=== PATIENT | female | born 1960 | race Two or more races ===

== ENCOUNTER → 2017-08-21 | Emergency (ER) | payer OTHER ==
[~2017-08-21] VITALS: Ht 152.4 cm; Wt 111.1 kg
[~2017-08-21] MED LIST: CIPRO500 MG PO; CLONAZEPAM1 MG PO; CLONAZEPAM2 MG PO; FOLIC ACID1 MG PO; HYOSCYAMINE0.125 M1 SL; HYZAAR 100-251 UDTAB; HYZAAR 100-251 UDTAB PO; HYZAAR 100/25 T1 TAB PO; Neurin-Sl Tablet Sl SL; OXYC1TAB9 PO; PAXIL CR25 MG PO; PROSOM PO; RESTORIL30 MG; TRAM1TAB98 PO; VITAMIN B COMPL1 CAP PO; ZOLPIDEM TARTRA10 MG PO
== END | disposition home or self-care (01) ==
LOC: ER 14:09
DX: N20.1 Calculus of ureter (principal)

== ENCOUNTER 2017-08-23 23:14 | Inpatient (IN) | payer OTHER ==
[~2017-08-23] VITALS: Ht 152.4 cm; Wt 111.0 kg
== END 2017-09-01 13:13 | disposition home or self-care (01) | DRG 669 ==
LOC: ER 23:14 → SURH 23:58
PROVIDERS: Urology
PROC: 0T768DZ Dilation of Right Ureter with Intraluminal Device, Via Natural or Artificial Opening Endoscopic (ICD-10-PCS; 2017-08-31)
PROC: 0TC68ZZ Extirpation of Matter from Right Ureter, Via Natural or Artificial Opening Endoscopic (ICD-10-PCS; principal; 2017-08-31 11:15)
DX: N17.8 Other acute kidney failure (principal); N20.2 Calculus of kidney with calculus of ureter; N39.0 Urinary tract infection, site not specified; F33.8 Other recurrent depressive disorders; E86.0 Dehydration; E66.01 Morbid (severe) obesity due to excess calories; I12.9 Hypertensive chronic kidney disease with stage 1 through stage 4 chronic kidney disease, or unspecified chronic kidney disease; N18.1 Chronic kidney disease, stage 1; D63.1 Anemia in chronic kidney disease; N13.5 Crossing vessel and stricture of ureter without hydronephrosis

== ENCOUNTER 2017-10-28 20:13 | Emergency (ER) | payer OTHER ==
[~2017-10-28] VITALS: Ht 152.4 cm; Wt 111.1 kg
== END 2017-10-29 08:54 | disposition home or self-care (01) ==
LOC: ER 20:13
DX: N20.0 Calculus of kidney (principal); N39.0 Urinary tract infection, site not specified; D72.828 Other elevated white blood cell count

== ENCOUNTER 2018-01-29 07:36 | Outpatient (CLI) | payer OTHER | END 2018-01-29 10:19 | disposition home or self-care (01) | LOC: TOM 07:36 | DX: N20.0 Calculus of kidney (principal) ==

== ENCOUNTER 2018-11-21 15:58 | Emergency (ER) | payer OTHER ==
[~2018-11-21] VITALS: Ht 152.4 cm; Wt 110.7 kg
[2018-11-22] MEDS ORDERED: PERCOCET 5-3251 EACH PO (01:27)
== END 2018-11-22 01:35 | disposition home or self-care (01) ==
LOC: ER 15:58
DX: N20.0 Calculus of kidney (principal); R10.31 Right lower quadrant pain

== ENCOUNTER 2019-01-21 07:57 | Day surgery (SDC) | payer OTHER ==
[~2019-01-21 07:57] MED LIST changes: +CLONAZEPAM1 M1; +PERCOCET 5-3251 EACH PO; +RESTORIL15 MG
== END 2019-01-21 14:50 | disposition home or self-care (01) ==
LOC: CIR.AMB 07:57
DX: N20.0 Calculus of kidney (principal); N13.1 Hydronephrosis with ureteral stricture, not elsewhere classified

== ENCOUNTER 2019-02-06 08:00 | Day surgery (SDC) | payer OTHER ==
[~2019-02-06] VITALS: Ht 152.4 cm; Wt 110.7 kg
== END 2019-02-07 08:06 | disposition home or self-care (01) ==
LOC: CIR.AMB 08:00 → ER 14:11 → SURH 16:07 → ER 16:07 → O/R 16:07 → CIR.AMB 02-07 08:06 → EDSTATUS 02-07 15:30 → SURH 02-07 17:33
DX: N20.2 Calculus of kidney with calculus of ureter (principal); N39.0 Urinary tract infection, site not specified; N13.5 Crossing vessel and stricture of ureter without hydronephrosis; Z88.0 Allergy status to penicillin; Z88.6 Allergy status to analgesic agent; Z88.5 Allergy status to narcotic agent

== ENCOUNTER 2019-05-24 06:00 | Inpatient (IN) | payer OTHER ==
[~2019-05-24] VITALS: Ht 152.4 cm; Wt 115.2 kg
[2019-05-27] MEDS ORDERED: RESTORIL15 MG PO (13:48)
[2019-05-27] MEDS ORDERED: PAXIL CR25 MG PO (13:48)
[2019-05-27] MEDS ORDERED: FAMOTIDINE20 MG PO (13:48)
[2019-05-27] MEDS ORDERED: AMLODIPINE BESYL5 MG PO (13:48)
[2019-05-27] MEDS ORDERED: TRAM1TAB98 PO (15:53)
== END 2019-05-27 16:23 | disposition home health service (06) | DRG 690 ==
LOC: MEDJ 06:00 → SEC-K 06:00 → MEDJ 14:22
PROVIDERS: ADMIT Internal Medicine Geriatric Medicine
PROC: 02HV33Z Insertion of Infusion Device into Superior Vena Cava, Percutaneous Approach (ICD-10-PCS; principal; 2019-05-24)
PROC: 8E0ZXY6 Isolation (ICD-10-PCS; 2019-05-25)
DX: N13.6 Pyonephrosis (principal); Z16.12 Extended spectrum beta lactamase (ESBL) resistance; B96.29 Other Escherichia coli [E. coli] as the cause of diseases classified elsewhere; I87.8 Other specified disorders of veins; N17.8 Other acute kidney failure; I10 Essential (primary) hypertension

== ENCOUNTER 2019-10-31 19:31 | Inpatient (IN) | payer OTHER ==
[~2019-10-31] VITALS: Ht 154.9 cm; Wt 104.8 kg
[~2019-10-31 19:31] MED LIST changes: +AMLODIPINE BESYL5 MG PO; +FAMOTIDINE20 MG PO; +RESTORIL15 MG PO
[2019-11-09] MEDS ORDERED: FAMOTIDINE20 MG PO (11:11)
[2019-11-09] MEDS ORDERED: CLONAZEPAM1 MG PO (11:11)
[2019-11-09] MEDS ORDERED: ULTRAM50 MG PO (11:11)
[2019-11-09] MEDS ORDERED: PAXIL CR25 MG PO (11:11)
[2019-11-09] MEDS ORDERED: AMLODIPINE BESYL5 MG PO (11:11)
[2019-11-09] MEDS ORDERED: LOSARTAN-HCTZ1 EAC2 PO (11:11)
== END 2019-11-09 14:46 | disposition home or self-care (01) | DRG 690 ==
LOC: ER 19:31 → SURH 11-01 07:14
PROVIDERS: ADMIT Internal Medicine Geriatric Medicine; ATTEND Internal Medicine Geriatric Medicine
PROC: 02HV33Z Insertion of Infusion Device into Superior Vena Cava, Percutaneous Approach (ICD-10-PCS; 2019-11-01)
PROC: BW20ZZZ Computerized Tomography (CT Scan) of Abdomen (ICD-10-PCS; 2019-11-01)
PROC: 8E0ZXY6 Isolation (ICD-10-PCS; principal; 2019-11-02)
DX: N39.0 Urinary tract infection, site not specified (principal); N17.9 Acute kidney failure, unspecified; F33.9 Major depressive disorder, recurrent, unspecified; I12.9 Hypertensive chronic kidney disease with stage 1 through stage 4 chronic kidney disease, or unspecified chronic kidney disease; N18.9 Chronic kidney disease, unspecified; E66.01 Morbid (severe) obesity due to excess calories; D63.1 Anemia in chronic kidney disease; N20.0 Calculus of kidney; Z96.653 Presence of artificial knee joint, bilateral; F41.9 Anxiety disorder, unspecified

== ENCOUNTER 2019-12-08 09:03 | Outpatient (CLI) | payer OTHER ==
[~2019-12-08 09:03] MED LIST changes: +LOSARTAN-HCTZ1 EAC2 PO; +ULTRAM50 MG PO
== END 2019-12-08 09:16 | disposition home or self-care (01) ==
LOC: SONOGRAMA 09:03 → MAMO-SONO 09:15 → SONOGRAMA 09:16
PROVIDERS: ATTEND Urology
DX: N20.0 Calculus of kidney (principal); N13.1 Hydronephrosis with ureteral stricture, not elsewhere classified

== ENCOUNTER 2019-12-08 10:14 | Outpatient (CLI) | payer OTHER | END 2019-12-08 10:17 | disposition home or self-care (01) | LOC: LAB 10:14 | PROVIDERS: ATTEND Urology | DX: N20.0 Calculus of kidney (principal); N13.1 Hydronephrosis with ureteral stricture, not elsewhere classified ==

== ENCOUNTER 2020-10-19 05:47 | Day surgery (SDC) | payer OTHER ==
[~2020-10-19 05:47] MED LIST changes: +HYZAAR 100-251 EACH PO
== END 2020-10-19 18:20 | disposition home or self-care (01) ==
LOC: CIR.AMB 05:47
PROVIDERS: ATTEND Urology
DX: N13.2 Hydronephrosis with renal and ureteral calculous obstruction (principal); N13.1 Hydronephrosis with ureteral stricture, not elsewhere classified; Z20.822 Contact with and (suspected) exposure to COVID-19

== ENCOUNTER 2022-09-03 08:26 | Inpatient (IN) | payer OTHER ==
[~2022-09-03] VITALS: Ht 152.4 cm; Wt 104.8 kg
[2022-09-10] MEDS ORDERED: AMLODIPINE BESYL5 MG PO (10:42)
[2022-09-10] MEDS ORDERED: HYZAAR 100-251 EACH PO (10:43)
[2022-09-10] MEDS ORDERED: FAMOTIDINE20 MG PO (10:44)
[2022-09-10] MEDS ORDERED: INTESTINEX680 M1 PO (10:45)
[2022-09-10] MEDS ORDERED: CLONAZEPAM1 MG PO ×2 (10:45→10:46)
[2022-09-10] MEDS ORDERED: RESTORIL15 MG PO (10:46)
[2022-09-10] MEDS ORDERED: PAXIL CR25 MG PO (10:46)
[2022-09-10] MEDS ORDERED: FLUCONAZOLE150 MG PO (10:47)
== END 2022-09-10 12:58 | disposition home or self-care (01) | DRG 690 ==
LOC: ER 08:26 → MEDI 12:43 → SEC-K 12:43 → MEDI 14:04 → MEDJ 16:11
PROVIDERS: ADMIT Internal Medicine Geriatric Medicine; ATTEND Internal Medicine Geriatric Medicine
PROC: 02HV33Z Insertion of Infusion Device into Superior Vena Cava, Percutaneous Approach (ICD-10-PCS; 2022-09-03)
PROC: 8E0ZXY6 Isolation (ICD-10-PCS; 2022-09-03)
PROC: BT43ZZZ Ultrasonography of Bilateral Kidneys (ICD-10-PCS; principal; 2022-09-04)
DX: N39.0 Urinary tract infection, site not specified (principal); Z68.42 Body mass index [BMI] 45.0-49.9, adult; Z16.12 Extended spectrum beta lactamase (ESBL) resistance; B96.29 Other Escherichia coli [E. coli] as the cause of diseases classified elsewhere; N20.0 Calculus of kidney; I12.9 Hypertensive chronic kidney disease with stage 1 through stage 4 chronic kidney disease, or unspecified chronic kidney disease; N18.9 Chronic kidney disease, unspecified; D63.1 Anemia in chronic kidney disease; F41.8 Other specified anxiety disorders; D72.829 Elevated white blood cell count, unspecified; E66.01 Morbid (severe) obesity due to excess calories; Z20.822 Contact with and (suspected) exposure to COVID-19

== ENCOUNTER 2023-02-03 16:58 | Outpatient (CLI) | payer OTHER ==
[~2023-02-03 16:58] MED LIST changes: +FLUCONAZOLE150 MG PO; +INTESTINEX680 M1 PO
== END 2023-02-03 16:59 | disposition home or self-care (01) ==
LOC: LAB 16:58
PROVIDERS: ATTEND Internal Medicine Geriatric Medicine
DX: N39.0 Urinary tract infection, site not specified (principal)

== ENCOUNTER 2023-02-24 09:44 | Outpatient (CLI) | payer OTHER | END 2023-02-24 09:59 | disposition home or self-care (01) | LOC: SONOGRAMA 09:44 | PROVIDERS: ATTEND Internal Medicine Hematology & Oncology | DX: E04.2 Nontoxic multinodular goiter (principal) ==

== ENCOUNTER 2023-02-24 11:10 | Outpatient (CLI) | payer OTHER | END 2023-02-24 11:12 | disposition home or self-care (01) | LOC: LAB 11:10 | PROVIDERS: ATTEND Internal Medicine Hematology & Oncology | DX: D50.8 Other iron deficiency anemias (principal); R79.9 Abnormal finding of blood chemistry, unspecified; I10 Essential (primary) hypertension; R74.02 Elevation of levels of lactic acid dehydrogenase [LDH]; K76.89 Other specified diseases of liver; D63.8 Anemia in other chronic diseases classified elsewhere; D55.0 Anemia due to glucose-6-phosphate dehydrogenase [G6PD] deficiency; D51.1 Vitamin B12 deficiency anemia due to selective vitamin B12 malabsorption with proteinuria; D51.0 Vitamin B12 deficiency anemia due to intrinsic factor deficiency; D63.1 Anemia in chronic kidney disease; E03.8 Other specified hypothyroidism; E21.0 Primary hyperparathyroidism; D72.828 Other elevated white blood cell count; F33.9 Major depressive disorder, recurrent, unspecified; G47.33 Obstructive sleep apnea (adult) (pediatric); N20.0 Calculus of kidney ==

== ENCOUNTER 2023-03-25 09:39 | Outpatient (CLI) | payer OTHER ==
[2023-03-25 10:57] LABS: CALCIUM 8.8 mg/dL (8.5-10.1); CREATININE SERUM 1.92 mg/dL (0.55-1.02); GFR 26.29; POTASSIUM 4.15 mEq/L (3.5-5.1)
== END 2023-03-25 09:40 | disposition home or self-care (01) ==
LOC: LAB 09:39
PROVIDERS: ATTEND Internal Medicine Geriatric Medicine
DX: N20.0 Calculus of kidney (principal); Z88.0 Allergy status to penicillin; Z88.5 Allergy status to narcotic agent; Z88.6 Allergy status to analgesic agent

== ENCOUNTER → 2023-06-26 10:49 | Outpatient (CLI) | payer OTHER ==
[2023-06-26 12:20] LABS: HEMATOCRIT 34.5 % (36.0-45.00); HEMOGLOBIN 11.2 g/dL (12.0-15.00); MEAN CELL VOLUME 88.4 fL (80.00-100.00); MEAN CORPUSCULAR HEMOGLOBIN 28.7 pg (27.00-32.0); MEAN CORPUSCULAR HGB CONC 32.5 g/dl (32.0-36.0); PLATELET COUNT 269 K/uL (150-450); RED BLOOD COUNT 3.91 M/uL (4.00-6.00); RED CELL DISTRIBUTION WIDTH 14.9 % (11.5-14.5)
[2023-06-26 13:04] LABS: ALBUMIN 3.3 gm/dL (3.4-5.0); BILIRUBIN TOTAL 0.21 mg/dL (0.3-1.2); CALCIUM 8.7 mg/dL (8.5-10.1); CREATININE SERUM 2.12 mg/dL (0.55-1.02); GFR 23.45; GLOBULINA 3.4 G/DL (2.4-3.5); POTASSIUM 3.49 mEq/L (3.5-5.1); T4 FREE 1.06 NG/ML (0.76-1.46); TOTAL PROTEIN 6.7 gm/dL (6.4-8.2); TSH 1.47 uIU/mL (0.358-3.74)
[2023-06-26 13:06] LABS: FOLIC ACID > 20.00 ng/ml (4.78-20)
[2023-06-26 14:47] LABS: MANUAL PLATELET COUNT 414
[2023-06-26 14:53] LABS: PLATELET ESTIMATE NORMAL (NORMAL)
== END | disposition home or self-care (01) ==
LOC: LAB 10:49
PROVIDERS: ATTEND Internal Medicine Hematology & Oncology
DX: D50.8 Other iron deficiency anemias (principal); R79.9 Abnormal finding of blood chemistry, unspecified; I10 Essential (primary) hypertension; R74.02 Elevation of levels of lactic acid dehydrogenase [LDH]; K76.89 Other specified diseases of liver; D51.8 Other vitamin B12 deficiency anemias; D63.1 Anemia in chronic kidney disease; E03.8 Other specified hypothyroidism; E83.52 Hypercalcemia; E06.3 Autoimmune thyroiditis; D72.828 Other elevated white blood cell count; G47.33 Obstructive sleep apnea (adult) (pediatric); N20.0 Calculus of kidney; D51.3 Other dietary vitamin B12 deficiency anemia; D52.8 Other folate deficiency anemias; E04.2 Nontoxic multinodular goiter; Z88.0 Allergy status to penicillin; Z88.5 Allergy status to narcotic agent; Z88.6 Allergy status to analgesic agent

== ENCOUNTER → 2023-09-21 08:22 | Outpatient (CLI) | payer OTHER ==
[2023-09-21 09:46] LABS: PH,URINE 5.5 (5.0-8.0); URINE APPEARANCE Clear; URINE BILIRRUBIN Negative (NEGATIVE); URINE BLOOD Negative; URINE COLOR Yellow; URINE GLUCOSE Negative (NEGATIVE); URINE LEUKOCYTE Negative; URINE NITRATE Negative; URINE PROTEIN Negative (NEGATIVE); URINE UROBILINOGEN 0.2 E.U./dl
[2023-09-21 09:47] LABS: URINE EPITHELIAL CELLS 12.9 uL (0.0-38.8); URINE RBC 2.7 uL (0.0-20.8); URINE WBC 2.1 uL (0.0-23.2)
[2023-09-21 09:54] LABS: HEMATOCRIT 32.3 % (36.0-45.00); HEMOGLOBIN 10.6 g/dL (12.0-15.00); MEAN CELL VOLUME 87.4 fL (80.00-100.00); MEAN CORPUSCULAR HEMOGLOBIN 28.8 pg (27.00-32.0); MEAN CORPUSCULAR HGB CONC 32.9 g/dl (32.0-36.0); PLATELET COUNT 294 K/uL (150-450); RED BLOOD COUNT 3.69 M/uL (4.00-6.00); RED CELL DISTRIBUTION WIDTH 15.5 % (11.5-14.5)
[2023-09-21 10:20] LABS: ALBUMIN 3.5 gm/dL (3.4-5.0); BILIRUBIN TOTAL 0.4 mg/dL (0.3-1.2); CALCIUM 9.2 mg/dL (8.5-10.1); CHOL HDL RATIO 3.1 (0-5.0); CREATININE SERUM 2.42 mg/dL (0.55-1.02); GFR 20.07; GLOBULINA 3.8 G/DL (2.4-3.5); POTASSIUM 3.2 mEq/L (3.5-5.1); TOTAL PROTEIN 7.3 gm/dL (6.4-8.2); TSH 2.03 uIU/mL (0.358-3.74)
[2023-09-21 11:18] LABS: MANUAL PLATELET COUNT 296; PLATELET ESTIMATE NORMAL (NORMAL)
[2023-09-21 13:23] LABS: FOLIC ACID > 20.00 ng/ml (4.78-20); VITAMIN D3 25 HYDROXY 62.06 ng/ml (30-120)
== END | disposition home or self-care (01) ==
LOC: LAB 08:22
PROVIDERS: ATTEND Internal Medicine Hematology & Oncology
DX: D50.8 Other iron deficiency anemias (principal); R79.9 Abnormal finding of blood chemistry, unspecified; I10 Essential (primary) hypertension; R74.02 Elevation of levels of lactic acid dehydrogenase [LDH]; K76.89 Other specified diseases of liver; D51.8 Other vitamin B12 deficiency anemias; D72.828 Other elevated white blood cell count; G47.33 Obstructive sleep apnea (adult) (pediatric); N20.0 Calculus of kidney; D51.3 Other dietary vitamin B12 deficiency anemia; D52.8 Other folate deficiency anemias; E04.2 Nontoxic multinodular goiter; E21.0 Primary hyperparathyroidism; D50.9 Iron deficiency anemia, unspecified; E03.9 Hypothyroidism, unspecified; E78.2 Mixed hyperlipidemia; I11.9 Hypertensive heart disease without heart failure; E56.8 Deficiency of other vitamins; N39.0 Urinary tract infection, site not specified; R19.5 Other fecal abnormalities; E55.9 Vitamin D deficiency, unspecified; N19 Unspecified kidney failure; E11.9 Type 2 diabetes mellitus without complications

== ENCOUNTER 2023-12-28 08:53 | Outpatient (CLI) | payer OTHER ==
[~2023-12-28 08:53] MED LIST changes: +ABANEU-SL TABL1 EACH SL; +FUSION PLUS CA1 EACH PO; +MELATONIN10 M2 PO; +TRAMADOL HCL50 MG PO
[2023-12-28 09:59] LABS: HEMATOCRIT 35.4 % (36.0-45.00); HEMOGLOBIN 11.8 g/dL (12.0-15.00); MEAN CELL VOLUME 89.8 fL (80.00-100.00); MEAN CORPUSCULAR HEMOGLOBIN 29.9 pg (27.00-32.0); MEAN CORPUSCULAR HGB CONC 33.3 g/dl (32.0-36.0); PLATELET COUNT 250 K/uL (150-450); RED BLOOD COUNT 3.94 M/uL (4.00-6.00)
[2023-12-28 11:00] LABS: ALBUMIN 3.6 gm/dL (3.4-5.0); BILIRUBIN TOTAL 0.34 mg/dL (0.3-1.2); CALCIUM 9.2 mg/dL (8.5-10.1); CREATININE SERUM 2.48 mg/dL (0.55-1.02); GFR 19.51; POTASSIUM 3.1 mEq/L (3.5-5.1); TOTAL PROTEIN 7.6 gm/dL (6.4-8.2)
[2023-12-28 14:42] LABS: MANUAL PLATELET COUNT 424
[2023-12-28 14:44] LABS: PLATELET ESTIMATE NORMAL (NORMAL)
== END 2023-12-28 08:56 | disposition home or self-care (01) ==
LOC: LAB 08:53
PROVIDERS: ATTEND Internal Medicine Hematology & Oncology
DX: D72.828 Other elevated white blood cell count (principal); I10 Essential (primary) hypertension; F33.9 Major depressive disorder, recurrent, unspecified; G47.33 Obstructive sleep apnea (adult) (pediatric); N20.0 Calculus of kidney; D50.8 Other iron deficiency anemias; D51.3 Other dietary vitamin B12 deficiency anemia; D52.8 Other folate deficiency anemias; E04.2 Nontoxic multinodular goiter; E21.0 Primary hyperparathyroidism

== ENCOUNTER 2024-01-25 10:31 | Outpatient (CLI) | payer OTHER ==
[2024-01-25 11:27] LABS: HEMATOCRIT 36.5 % (36.0-45.00); MEAN CELL VOLUME 92.3 fL (80.00-100.00); MEAN CORPUSCULAR HEMOGLOBIN 30.4 pg (27.00-32.0); PLATELET COUNT 262 K/uL (150-450); RED BLOOD COUNT 3.95 M/uL (4.00-6.00); RED CELL DISTRIBUTION WIDTH 14.8 % (11.5-14.5)
[2024-01-25 12:15] LABS: PH,URINE 5.5 (5.0-8.0); URINE APPEARANCE Cloudy; URINE BILIRRUBIN Negative (NEGATIVE); URINE BLOOD Negative; URINE COLOR Yellow; URINE EPITHELIAL CELLS 53.9 uL (0.0-38.8); URINE GLUCOSE Negative (NEGATIVE); URINE KETONE Negative (NEGATIVE); URINE LEUKOCYTE Small; URINE NITRATE Positive; URINE PROTEIN Trace (NEGATIVE); URINE RBC 10.6 uL (0.0-20.8); URINE UROBILINOGEN 0.2 E.U./dl; URINE WBC 228.4 uL (0.0-23.2)
[2024-01-25 12:27] LABS: ALBUMIN 3.5 gm/dL (3.4-5.0); CALCIUM 9.3 mg/dL (8.5-10.1); CHOL HDL RATIO 3.2 (0-5.0); CREATININE SERUM 2.45 mg/dL (0.55-1.02); GFR 19.78; PHOSPHOROUS 2.8 mg/dL (2.5-4.9); POTASSIUM 4.28 mEq/L (3.5-5.1); URIC ACID 6.5 mg/dL (2.5-7.5)
[2024-01-25 12:34] LABS: URINE BACTERIA > 9821.5 uL (0.0-1933); URINE CAST 0.91 uL (0.0-1.40)
[2024-01-28 15:07] LABS: alp 0 % (.); alph 2 0 % (.); alpha 1 g 0.3 g/dL (0.0-0.4); alpha 2 0.9 g/dL (0.4-1.0); beta 0 % (.); beta g 1.4 g/dL (0.7-1.3); gam 0 % (.); gamma g 1.1 g/dL (0.4-1.8); globulin t 3.6 g/dL (2.2-3.9); m spi 0 % (Not Observed); prot 29.5 mg/dL (Not Estab.); prot total 7.2 g/dL (6.0-8.5)
== END 2024-01-25 10:41 | disposition home or self-care (01) ==
LOC: LAB 10:31
PROVIDERS: ATTEND Internal Medicine Nephrology
DX: N18.4 Chronic kidney disease, stage 4 (severe) (principal); I10 Essential (primary) hypertension; E11.22 Type 2 diabetes mellitus with diabetic chronic kidney disease; E28.9 Ovarian dysfunction, unspecified

== ENCOUNTER 2024-01-28 09:52 | Outpatient (CLI) | payer OTHER ==
[2024-01-28 10:39] LABS: URINE PROT QUANT 24HR 11.7 MG/DL
[2024-01-28 10:41] LABS: URINE PROT QUANT 24 HR 93.6 MG/24HR (42-225)
[2024-01-28 11:22] LABS: CREATINE CLEARANCE 17.7 ML/MIN (97-137); CREATININE SERUM 2.2 mg/dL (0.6-1.0)
== END 2024-01-28 09:57 | disposition home or self-care (01) ==
LOC: LAB 09:52
PROVIDERS: ATTEND Internal Medicine Nephrology
DX: N18.4 Chronic kidney disease, stage 4 (severe) (principal); I10 Essential (primary) hypertension; E11.22 Type 2 diabetes mellitus with diabetic chronic kidney disease; E78.5 Hyperlipidemia, unspecified; E21.3 Hyperparathyroidism, unspecified

== ENCOUNTER 2024-04-04 08:49 | Outpatient (CLI) | payer OTHER ==
[2024-04-04 09:39] LABS: HEMATOCRIT 35.9 % (36.0-45.00); HEMOGLOBIN 11.9 g/dL (12.0-15.00); MEAN CELL VOLUME 91.5 fL (80.00-100.00); MEAN CORPUSCULAR HEMOGLOBIN 30.3 pg (27.00-32.0); MEAN CORPUSCULAR HGB CONC 33.1 g/dl (32.0-36.0); PLATELET COUNT 262 K/uL (150-450); RED BLOOD COUNT 3.93 M/uL (4.00-6.00); RED CELL DISTRIBUTION WIDTH 13.5 % (11.5-14.5)
[2024-04-04 09:47] LABS: PH,URINE 5.5 (5.0-8.0); URINE APPEARANCE Clear; URINE BILIRRUBIN Negative (NEGATIVE); URINE BLOOD Negative; URINE COLOR Yellow; URINE GLUCOSE Negative (NEGATIVE); URINE KETONE Negative (NEGATIVE); URINE LEUKOCYTE Trace; URINE NITRATE Negative; URINE PROTEIN Negative (NEGATIVE); URINE UROBILINOGEN 0.2 E.U./dl
[2024-04-04 09:50] LABS: URINE BACTERIA 6250.7 uL (0.0-1933); URINE EPITHELIAL CELLS 11.9 uL (0.0-38.8); URINE RBC 3.3 uL (0.0-20.8); URINE WBC 45.9 uL (0.0-23.2)
[2024-04-04 10:01] LABS: URINE CAST 0.15 uL (0.0-1.40)
[2024-04-04 11:24] LABS: ALBUMIN 3.6 gm/dL (3.4-5.0); BILIRUBIN TOTAL 0.21 mg/dL (0.3-1.2); CALCIUM 9.3 mg/dL (8.5-10.1); CHOL HDL RATIO 3.4 (0-5.0); CREATININE SERUM 2.24 mg/dL (0.55-1.02); GFR 21.94; POTASSIUM 3.67 mEq/L (3.5-5.1); TOTAL PROTEIN 7.6 gm/dL (6.4-8.2); TSH 3.23 uIU/mL (0.358-3.74)
== END 2024-04-04 08:56 | disposition home or self-care (01) ==
LOC: LAB 08:49
PROVIDERS: ATTEND Internal Medicine Geriatric Medicine
DX: D50.9 Iron deficiency anemia, unspecified (principal); E03.9 Hypothyroidism, unspecified; E78.2 Mixed hyperlipidemia; I11.9 Hypertensive heart disease without heart failure; E56.8 Deficiency of other vitamins; N39.0 Urinary tract infection, site not specified; Z12.11 Encounter for screening for malignant neoplasm of colon; R19.5 Other fecal abnormalities; E55.9 Vitamin D deficiency, unspecified; N19 Unspecified kidney failure; E11.9 Type 2 diabetes mellitus without complications

== ENCOUNTER → 2024-04-11 10:00 | Outpatient (CLI) | payer OTHER ==
[2024-04-11 10:31] LABS: HEMATOCRIT 36.6 % (36.0-45.00); HEMOGLOBIN 11.9 g/dL (12.0-15.00); MEAN CELL VOLUME 93.5 fL (80.00-100.00); MEAN CORPUSCULAR HEMOGLOBIN 30.3 pg (27.00-32.0); MEAN CORPUSCULAR HGB CONC 32.4 g/dl (32.0-36.0); PLATELET COUNT 266 K/uL (150-450); RED BLOOD COUNT 3.92 M/uL (4.00-6.00); RED CELL DISTRIBUTION WIDTH 13.1 % (11.5-14.5)
[2024-04-11 10:45] LABS: URINE APPEARANCE Cloudy; URINE BILIRRUBIN Negative (NEGATIVE); URINE BLOOD Negative; URINE COLOR Yellow; URINE GLUCOSE Negative (NEGATIVE); URINE KETONE Negative (NEGATIVE); URINE LEUKOCYTE Trace; URINE NITRATE Negative; URINE PROTEIN Trace (NEGATIVE); URINE UROBILINOGEN 0.2 E.U./dl
[2024-04-11 10:46] LABS: URINE CAST 1.52 uL (0.0-1.40); URINE EPITHELIAL CELLS 15.2 uL (0.0-38.8); URINE RBC 10.9 uL (0.0-20.8); URINE WBC 65.9 uL (0.0-23.2)
[2024-04-11 10:54] LABS: URINE BACTERIA > 9821.5 uL (0.0-1933)
[2024-04-11 11:21] LABS: ALBUMIN 3.5 gm/dL (3.4-5.0); CALCIUM 9.3 mg/dL (8.5-10.1); CREATININE SERUM 2.21 mg/dL (0.55-1.02); GFR 22.28; PHOSPHOROUS 3.3 mg/dL (2.5-4.9); POTASSIUM 3.27 mEq/L (3.5-5.1)
[2024-04-11 15:39] LABS: CREATININE URINE RANDOM 90.4 MG/DL (30-125)
[2024-04-11 15:44] LABS: URIC ACID 4.9 mg/dL (2.5-7.5)
== END | disposition home or self-care (01) ==
LOC: LAB 10:00
PROVIDERS: ATTEND Internal Medicine Nephrology
DX: N18.32 Chronic kidney disease, stage 3b (principal); I10 Essential (primary) hypertension; R80.9 Proteinuria, unspecified; N39.0 Urinary tract infection, site not specified

== ENCOUNTER 2024-06-22 20:28 | Emergency (ER) | payer OTHER ==
[~2024-06-22] VITALS: Ht 157.5 cm; Wt 108.9 kg
[2024-06-22 20:42] VITALS: BP 172/91; O2SAT 98
[2024-06-22] MEDS ORDERED: PROMETHAZINE HCL 50 MG/ML AMPUL IM ONE ×2 (20:57→21:00)
[2024-06-22] MEDS ORDERED: MEPERIDINE HCL/PF 50 MG/ML VIAL IM ONE (21:00)
[2024-06-22] MEDS ORDERED: 0.9 % SODIUM CHLORIDE 1,000 ML IV SCH (21:00)
[2024-06-22 21:42] LABS: HEMATOCRIT 36.5 % (36.0-45.00); HEMOGLOBIN 11.7 g/dL (12.0-15.00); MEAN CELL VOLUME 93.2 fL (80.00-100.00); MEAN CORPUSCULAR HEMOGLOBIN 29.8 pg (27.00-32.0); PLATELET COUNT 264 K/uL (150-450); RED BLOOD COUNT 3.92 M/uL (4.00-6.00); RED CELL DISTRIBUTION WIDTH 13.7 % (11.5-14.5)
[2024-06-22 22:07] LABS: ALBUMIN 3.5 gm/dL (3.4-5.0); BILIRUBIN TOTAL 0.31 mg/dL (0.3-1.2); CALCIUM 9.2 mg/dL (8.5-10.1); CREATININE SERUM 2.24 mg/dL (0.55-1.02); GFR 21.94; GLOBULINA 3.9 G/DL (2.4-3.5); POTASSIUM 4.07 mEq/L (3.5-5.1); TOTAL PROTEIN 7.4 gm/dL (6.4-8.2)
[2024-06-22 23:52] LABS: PH,URINE 5.5 (5.0-8.0); URINE APPEARANCE Clear; URINE BILIRRUBIN Negative (NEGATIVE); URINE BLOOD Negative; URINE COLOR Yellow; URINE GLUCOSE Negative (NEGATIVE); URINE KETONE Negative (NEGATIVE); URINE LEUKOCYTE Negative; URINE NITRATE Negative; URINE PROTEIN Trace (NEGATIVE); URINE UROBILINOGEN 0.2 E.U./dl
[2024-06-22 23:56] LABS: URINE BACTERIA 1079.1 uL (0.0-1933); URINE EPITHELIAL CELLS 17.8 uL (0.0-38.8); URINE WBC 18.1 uL (0.0-23.2)
[2024-06-23] LABS: URINE CAST 0.58 uL (0.0-1.40)
== END 2024-06-23 02:13 ==
LOC: ER 20:31
PROVIDERS: General Practice
DX: R10.9 Unspecified abdominal pain (principal); Z88.0 Allergy status to penicillin; Z88.6 Allergy status to analgesic agent; I11.9 Hypertensive heart disease without heart failure; Z87.442 Personal history of urinary calculi
CPT/HCPCS: 36415; 74176; 96365; 96366; 99284; J2250; J3490; J7030

== ENCOUNTER 2024-06-27 10:23 | Outpatient (CLI) | payer OTHER ==
[2024-06-27 11:18] LABS: HEMATOCRIT 34.6 % (36.0-45.00); HEMOGLOBIN 11.6 g/dL (12.0-15.00); MEAN CELL VOLUME 91.5 fL (80.00-100.00); MEAN CORPUSCULAR HEMOGLOBIN 30.6 pg (27.00-32.0); MEAN CORPUSCULAR HGB CONC 33.5 g/dl (32.0-36.0); PLATELET COUNT 252 K/uL (150-450); RED BLOOD COUNT 3.78 M/uL (4.00-6.00); RED CELL DISTRIBUTION WIDTH 13.6 % (11.5-14.5)
[2024-06-27 12:26] LABS: CREATININE SERUM 2.3 mg/dL (0.55-1.02); GFR 21.28
[2024-06-27 12:27] LABS: ALBUMIN 3.5 gm/dL (3.4-5.0); BILIRUBIN TOTAL 0.31 mg/dL (0.3-1.2); CALCIUM 9.3 mg/dL (8.5-10.1); GLOBULINA 3.6 G/DL (2.4-3.5); POTASSIUM 3.86 mEq/L (3.5-5.1); T4 FREE 0.96 NG/ML (0.76-1.46); TOTAL PROTEIN 7.1 gm/dL (6.4-8.2); TSH 3.44 uIU/mL (0.358-3.74)
[2024-06-27 12:31] LABS: FERRITIN 338.4 NG/ML (8-252)
[2024-06-27 14:16] LABS: MANUAL PLATELET COUNT 368
[2024-06-27 14:17] LABS: PLATELET ESTIMATE NORMAL (NORMAL)
[2024-06-29 08:05] LABS: TRANSFERIN 248 mg/dL (192-364)
== END 2024-06-27 10:27 | disposition home or self-care (01) ==
LOC: LAB 10:23
PROVIDERS: ATTEND Internal Medicine Hematology & Oncology
DX: D50.8 Other iron deficiency anemias (principal); R79.9 Abnormal finding of blood chemistry, unspecified; I10 Essential (primary) hypertension; R74.02 Elevation of levels of lactic acid dehydrogenase [LDH]; K76.89 Other specified diseases of liver; E03.8 Other specified hypothyroidism; D72.828 Other elevated white blood cell count; F33.9 Major depressive disorder, recurrent, unspecified; G47.33 Obstructive sleep apnea (adult) (pediatric); N20.0 Calculus of kidney; D51.3 Other dietary vitamin B12 deficiency anemia; E04.2 Nontoxic multinodular goiter; E21.0 Primary hyperparathyroidism

== ENCOUNTER → 2024-07-21 10:48 | Outpatient (CLI) | payer OTHER ==
[2024-07-21 11:19] LABS: HEMATOCRIT 32.8 % (36.0-45.00); HEMOGLOBIN 11.7 g/dL (12.0-15.00); MEAN CELL VOLUME 89.8 fL (80.00-100.00); MEAN CORPUSCULAR HGB CONC 35.7 g/dl (32.0-36.0); PLATELET COUNT 283 K/uL (150-450); RED BLOOD COUNT 3.65 M/uL (4.00-6.00); RED CELL DISTRIBUTION WIDTH 13.4 % (11.5-14.5)
[2024-07-21 11:28] LABS: PH,URINE 5.5 (5.0-8.0); URINE APPEARANCE Clear; URINE BILIRRUBIN Negative (NEGATIVE); URINE BLOOD Negative; URINE COLOR Yellow; URINE GLUCOSE Negative (NEGATIVE); URINE KETONE Negative (NEGATIVE); URINE LEUKOCYTE Negative; URINE NITRATE Negative; URINE PROTEIN Trace (NEGATIVE); URINE UROBILINOGEN 0.2 E.U./dl
[2024-07-21 11:33] LABS: URINE EPITHELIAL CELLS 19.6 uL (0.0-38.8); URINE RBC 4.8 uL (0.0-20.8); URINE WBC 9.8 uL (0.0-23.2)
[2024-07-21 11:43] LABS: URINE CAST 1.32 uL (0.0-1.40)
[2024-07-21 12:36] LABS: ALBUMIN 3.4 gm/dL (3.4-5.0); BILIRUBIN TOTAL 0.34 mg/dL (0.3-1.2); CALCIUM 9.2 mg/dL (8.5-10.1); CHOL HDL RATIO 2.9 (0-5.0); CREATININE SERUM 2.32 mg/dL (0.55-1.02); GFR 21.07; POTASSIUM 3.39 mEq/L (3.5-5.1); TOTAL PROTEIN 7.4 gm/dL (6.4-8.2); TSH 2.52 uIU/mL (0.358-3.74)
== END | disposition home or self-care (01) ==
LOC: LAB 10:48
PROVIDERS: ATTEND Internal Medicine Geriatric Medicine
DX: D50.9 Iron deficiency anemia, unspecified (principal); E03.9 Hypothyroidism, unspecified; E78.2 Mixed hyperlipidemia; I11.9 Hypertensive heart disease without heart failure; E56.8 Deficiency of other vitamins; N39.0 Urinary tract infection, site not specified; Z12.11 Encounter for screening for malignant neoplasm of colon; R19.5 Other fecal abnormalities; E55.9 Vitamin D deficiency, unspecified; N19 Unspecified kidney failure; E11.9 Type 2 diabetes mellitus without complications

== ENCOUNTER 2024-10-03 09:16 | Outpatient (CLI) | payer OTHER ==
[2024-10-03 11:24] LABS: URINE APPEARANCE CLEAR; URINE BILIRRUBIN NEGATIVE (NEGATIVE); URINE COLOR YELLOW; URINE GLUCOSE NEGATIVE (NEGATIVE); URINE KETONE NEGATIVE (NEGATIVE)
[2024-10-03 11:25] LABS: PH,URINE 5.5; URINE BACTERIA 4475.8 uL (0.0-1933); URINE BLOOD NEGATIVE; URINE CAST 0.44 uL (0.0-1.40); URINE EPITHELIAL CELLS 33.5 uL (0.0-38.8); URINE LEUKOCYTE NEGATIVE; URINE NITRATE NEGATIVE; URINE PROTEIN TRACE (NEGATIVE); URINE RBC 3.9 uL (0.0-20.8); URINE UROBILINOGEN 0.2 E.U./dl
[2024-10-03 11:27] LABS: HEMATOCRIT 36.6 % (36.0-45.00); HEMOGLOBIN 11.6 g/dL (12.0-15.00); MEAN CELL VOLUME 91.4 fL (80.00-100.00); MEAN CORPUSCULAR HEMOGLOBIN 29.1 pg (27.00-32.0); MEAN CORPUSCULAR HGB CONC 31.8 g/dl (32.0-36.0); PLATELET COUNT 300 K/uL (150-450); RED BLOOD COUNT 4.01 M/uL (4.00-6.00); RED CELL DISTRIBUTION WIDTH 13.7 % (11.5-14.5)
[2024-10-03 11:30] LABS: ALBUMIN 3.4 gm/dL (3.4-5.0); CALCIUM 9.4 mg/dL (8.5-10.1); CREATININE SERUM 2.07 mg/dL (0.55-1.02); GFR 23.96; PHOSPHOROUS 2.7 mg/dL (2.5-4.9); POTASSIUM 3.89 mEq/L (3.5-5.1); URIC ACID 6.5 mg/dL (2.5-7.5)
== END 2024-10-03 09:18 | disposition home or self-care (01) ==
LOC: LAB 09:16
PROVIDERS: ATTEND Internal Medicine Nephrology
DX: I10 Essential (primary) hypertension (principal); E11.21 Type 2 diabetes mellitus with diabetic nephropathy; R80.9 Proteinuria, unspecified; N20.0 Calculus of kidney; N20.1 Calculus of ureter

== ENCOUNTER 2024-10-03 10:24 | Outpatient (CLI) | payer OTHER | END 2024-10-03 10:35 | disposition home or self-care (01) | LOC: RAD 10:24 | PROVIDERS: ATTEND Urology | DX: N20.0 Calculus of kidney (principal); N20.1 Calculus of ureter; R31.1 Benign essential microscopic hematuria ==

== ENCOUNTER 2024-10-18 14:05 | Inpatient (IN) | payer OTHER ==
[~2024-10-18] VITALS: Ht 152.4 cm; Wt 106.6 kg
--- NOTE | 2024-10-18 14:49 | NUR ---
PTE ALERTA Y ORIENTADA X3 REFIERE VENIR A THEA DEBIDO A QUE LA MISMA TIENE REFERIDO DE DR DONNA THORPE EL CUAL EXPRESA QUE LA PTE TIENE RESULTADOS DE BACTERIA INMUNE A MEDICAMENTOS POR BOCA Y LA PTE TIENE ANURADHA RADHIKA BAJANDO POR E RINON DERECHO. SE MIDEN S/V Y SE UBICA.,
[2024-10-18 17:09] LABS: HEMOGLOBIN 12.2 g/dL (12.0-15.00); MEAN CELL VOLUME 89.6 fL (80.00-100.00); MEAN CORPUSCULAR HEMOGLOBIN 29.6 pg (27.00-32.0); MEAN CORPUSCULAR HGB CONC 33.1 g/dl (32.0-36.0); PLATELET COUNT 268 K/uL (150-450); RED BLOOD COUNT 4.13 M/uL (4.00-6.00); RED CELL DISTRIBUTION WIDTH 13.6 % (11.5-14.5)
--- NOTE | 2024-10-18 17:17 | NUR ---
GURWINDER CARLIN ORIENTA A PTE SOBRE TX MEDICO Y REFIERE ACEPTAR. CANALIZA Y COELCTA MUESTRAS DE LAB. HACE ENTRGEA DE ENVASE PARA ORINA. SE NOTIFICA CT PENDIENTE
[2024-10-18 17:26] LABS: PH,URINE 5.5 (5.0-8.0); URINE APPEARANCE Error; URINE BILIRRUBIN Negative (NEGATIVE); URINE BLOOD Trace; URINE COLOR Yellow; URINE GLUCOSE Negative (NEGATIVE); URINE KETONE Negative (NEGATIVE); URINE LEUKOCYTE Negative; URINE NITRATE Negative; URINE PROTEIN Trace (NEGATIVE); URINE UROBILINOGEN 0.2 E.U./dl
[2024-10-18 17:27] LABS: ALBUMIN 3.6 gm/dL (3.4-5.0); BILIRUBIN TOTAL 0.36 mg/dL (0.3-1.2); CALCIUM 9.6 mg/dL (8.5-10.1); CREATININE SERUM 2.04 mg/dL (0.55-1.02); GFR 24.36; GLOBULINA 4.3 G/DL (2.4-3.5); POTASSIUM 3.29 mEq/L (3.5-5.1); TOTAL PROTEIN 7.9 gm/dL (6.4-8.2)
[2024-10-18] MEDS ORDERED: ACETAMINOPHEN WITH CODEINE 1 UDTAB TABLET PO ONE (17:30)
[2024-10-18 17:32] LABS: URINE BACTERIA 5766.1 uL (0.0-1933); URINE EPITHELIAL CELLS 70.2 uL (0.0-38.8); URINE WBC 123.1 uL (0.0-23.2)
[2024-10-18 17:53] LABS: URINE CAST 0.73 uL (0.0-1.40)
[2024-10-18] MEDS ORDERED: MEROPENEM 500 MG/VIAL VIAL IV SCH (22:10)
[2024-10-18] MEDS ORDERED: AMLODIPINE BESYLATE 5 MG TABLET PO SCH (22:10)
[2024-10-18] MEDS ORDERED: TRAMADOL HCL 50 MG TABLET PO PRN (22:15)
[2024-10-18] MEDS ORDERED: ACETAMINOPHEN 500 MG GEL..CAP PO PRN (22:15)
[2024-10-18] MEDS ORDERED: 0.9 % SODIUM CHLORIDE 1,000 ML IV SCH (22:15)
--- NOTE | 2024-10-19 00:12 | NUR ---
SE RECIBE PACIENTE ALERTA Y ORIENTADO X3 .CON VENOPUCION PATENTE SUNG DE EDEMA Y ERITEMA. EN ESPERA DE ADMICION.
[2024-10-19 03:49] VITALS: BP 131/76; BP 137/76; O2SAT 98
[2024-10-19 06:30] VITALS: BP 137/71
[2024-10-19 08:00] VITALS: BP 130/71; O2SAT 96
[2024-10-19] MEDS ORDERED: LOSARTAN/HYDROCHLOROTHIAZIDE 1 UDTAB TABLET PO SCH (09:00)
[2024-10-19] MEDS ORDERED: ENOXAPARIN SODIUM 30 MG/0.3 ML SYRINGE SUBCUTANEO SCH (09:00)
[2024-10-19] MEDS ORDERED: IRON FUM,PS/FOLIC/BCOMP,C NO.9 1 CAP CAPSULE PO SCH (09:00)
[2024-10-19] MEDS ORDERED: MEROPENEM 500 MG/VIAL VIAL IV SCH ×2 (09:00→17:00)
[2024-10-19] MEDS ORDERED: FAMOTIDINE/PF 20 MG in 0.9 % SODIUM CHLORIDE 8 ML IV PUSH SCH (09:00)
[2024-10-19 10:51] LABS: INR 1.07; PARTIAL THROMBOPLASTIN TIME 27.1 SECONDS (22.0-34.0); PROTHROMBIN TIME 11.6 SECONDS (9.0-11.5)
[2024-10-19] MEDS ORDERED: GABAPENTIN 300 MG CAPSULE PO NR (14:00)
[2024-10-19 17:57] VITALS: BP 124/73; O2SAT 98
[2024-10-19] MEDS ORDERED: GABAPENTIN 300 MG CAPSULE PO SCH (21:00)
[2024-10-20 02:06] VITALS: BP 129/74; O2SAT 97
[2024-10-20 06:18] LABS: HEMATOCRIT 33.2 % (36.0-45.00); HEMOGLOBIN 10.7 g/dL (12.0-15.00); MEAN CELL VOLUME 91.3 fL (80.00-100.00); MEAN CORPUSCULAR HEMOGLOBIN 29.5 pg (27.00-32.0); MEAN CORPUSCULAR HGB CONC 32.3 g/dl (32.0-36.0); PLATELET COUNT 236 K/uL (150-450); RED BLOOD COUNT 3.64 M/uL (4.00-6.00); RED CELL DISTRIBUTION WIDTH 13.6 % (11.5-14.5)
[2024-10-20 06:22] LABS: ALBUMIN 2.9 gm/dL (3.4-5.0); BILIRUBIN TOTAL 0.32 mg/dL (0.3-1.2); CALCIUM 8.2 mg/dL (8.5-10.1); CREATININE SERUM 2.09 mg/dL (0.55-1.02); GFR 23.69; MAGNESIUM 1.6 mg/dL (1.8-2.4); POTASSIUM 3.04 mEq/L (3.5-5.1); TOTAL PROTEIN 5.9 gm/dL (6.4-8.2)
[2024-10-20 06:48] LABS: C-REACTIVE PROTEIN 4.25 MG/DL (0.00-0.29)
[2024-10-20] MEDS ORDERED: MAGNESIUM SULFATE IN WATER 50 ML IV NR (16:00)
[2024-10-20] MEDS ORDERED: POTASSIUM CHLORIDE 20MEQ/100ML H2O PB IV NR (17:00)
[2024-10-20] MEDS ORDERED: VANCOMYCIN HCL 5 MG/ML REDILUIDO IV SCH (17:00)
[2024-10-20 18:21] VITALS: BP 145/84; O2SAT 98
[2024-10-20] MEDS ORDERED: PROMETHAZINE HCL 25 MG/ML AMPUL IM STA (22:04)
[2024-10-20] MEDS ORDERED: PROMETHAZINE HCL 25 MG/ML AMPUL IM PRN (22:15)
[2024-10-21 02:27] VITALS: BP 145/72; O2SAT 96
[2024-10-21 08:27] VITALS: BP 124/70
[2024-10-21 10:59] LABS: PH,URINE 5.5 (5.0-8.0); URINE APPEARANCE Clear; URINE BILIRRUBIN Negative (NEGATIVE); URINE BLOOD Negative; URINE COLOR Yellow; URINE GLUCOSE Negative (NEGATIVE); URINE KETONE Negative (NEGATIVE); URINE LEUKOCYTE Negative; URINE NITRATE Negative; URINE PROTEIN Negative (NEGATIVE); URINE UROBILINOGEN 0.2 E.U./dl
[2024-10-21 11:05] LABS: URINE BACTERIA 1173.6 uL (0.0-1933); URINE EPITHELIAL CELLS 99.1 uL (0.0-38.8); URINE WBC 37.5 uL (0.0-23.2)
[2024-10-21 11:06] LABS: URINE CAST 0.58 uL (0.0-1.40); URINE RBC 1.3 uL (0.0-20.8)
[2024-10-21 16:51] VITALS: BP 112/68; O2SAT 98
[2024-10-22 00:47] VITALS: BP 120/64; O2SAT 96
[2024-10-22 08:10] VITALS: BP 130/71
[2024-10-22 18:41] VITALS: BP 149/70; O2SAT 95
[2024-10-23 01:14] VITALS: BP 139/80; O2SAT 93
[2024-10-23 04:22] VITALS: BP 113/61; O2SAT 97
[2024-10-23 08:24] VITALS: BP 126/70
[2024-10-23 18:52] VITALS: BP 141/65; O2SAT 96
[2024-10-24 01:17] VITALS: BP 133/66; O2SAT 96
[2024-10-24 07:38] LABS: CALCIUM 7.8 mg/dL (8.5-10.1); GFR 24.93; MAGNESIUM 1.8 mg/dL (1.8-2.4); PHOSPHOROUS 2.7 mg/dL (2.5-4.9); POTASSIUM 3.61 mEq/L (3.5-5.1)
[2024-10-24 07:41] LABS: C-REACTIVE PROTEIN 1.87 MG/DL (0.00-0.29)
[2024-10-24 08:24] VITALS: BP 132/76; O2SAT 96
[2024-10-24 13:00] LABS: BASO % 0.3 % (0.1-1.2); EOS # 0.61 (0.04-0.54); EOS % 4.4 % (0.7-7.0); HEMATOCRIT 29.3 % (34.1-44.9); HEMOGLOBIN 9.2 g/dL (11.2-15.7); LYMPH # 1.76 (1.18-3.74); LYMPH % 12.6 % (19.3-53.1); MEAN CORPUSCULAR HEMOGLOBIN 29.6 pg (25.6-32.2); MONO # 0.43 (0.24-0.82); MONO % 3.1 % (4.7-12.5); NEUT # 10.96 (1.56-6.13); NEUT % 78.4 % (34.0-71.1); PLATELET COUNT 199 K/uL (163-369); RED BLOOD COUNT 3.11 M/uL (3.93-5.22); RED CELL DISTRIBUTION WIDTH 13.2 % (11.6-14.4)
[2024-10-24 17:16] VITALS: BP 159/72
[2024-10-25 02:28] VITALS: BP 125/68; O2SAT 96
[2024-10-25 08:14] VITALS: BP 140/78
[2024-10-25] MEDS ORDERED: AMLODIPINE BESYL5 MG PO (13:23)
[2024-10-25] MEDS ORDERED: GABAPENTIN300 MG PO (13:23)
[2024-10-25] MEDS ORDERED: FUSION PLUS CA1 EACH PO (13:23)
[2024-10-25] MEDS ORDERED: LOSARTAN-HCTZ1 EAC2 PO (13:23)
== END 2024-10-25 14:51 | disposition home or self-care (01) | DRG 689 ==
LOC: ER 14:05 → MEDJ 22:20
PROVIDERS: Emergency Medicine; General Practice; Internal Medicine Infectious Disease; ADMIT Internal Medicine Geriatric Medicine; ATTEND Internal Medicine Geriatric Medicine
PROC: BW21ZZZ Computerized Tomography (CT Scan) of Abdomen and Pelvis (ICD-10-PCS; 2024-10-18)
PROC: 02HV33Z Insertion of Infusion Device into Superior Vena Cava, Percutaneous Approach (ICD-10-PCS; 2024-10-20)
PROC: 8E0ZXY6 Isolation (ICD-10-PCS; principal; 2024-10-21)
DX: N39.0 Urinary tract infection, site not specified (principal); A41.9 Sepsis, unspecified organism; R65.10 Systemic inflammatory response syndrome (SIRS) of non-infectious origin without acute organ dysfunction; N17.9 Acute kidney failure, unspecified; E87.6 Hypokalemia; D72.829 Elevated white blood cell count, unspecified

== ENCOUNTER 2024-11-10 10:48 | Outpatient (CLI) | payer OTHER ==
[~2024-11-10 10:48] MED LIST changes: +GABAPENTIN300 MG PO
[2024-11-10 11:55] LABS: BASO % 0.3 % (0.1-1.2); EOS # 0.35 (0.04-0.54); EOS % 2.4 % (0.7-7.0); HEMATOCRIT 36.6 % (34.1-44.9); HEMOGLOBIN 11.4 g/dL (11.2-15.7); LYMPH # 1.71 (1.18-3.74); LYMPH % 11.7 % (19.3-53.1); MEAN CORPUSCULAR HEMOGLOBIN 28.9 pg (25.6-32.2); MONO % 2.7 % (4.7-12.5); NEUT # 11.93 (1.56-6.13); NEUT % 81.9 % (34.0-71.1); PLATELET COUNT 284 K/uL (163-369); RED BLOOD COUNT 3.94 M/uL (3.93-5.22); RED CELL DISTRIBUTION WIDTH 13.5 % (11.6-14.4)
[2024-11-10 12:00] LABS: PH,URINE 5.5 (5.0-8.0); URINE APPEARANCE Clear; URINE BILIRRUBIN Negative (NEGATIVE); URINE BLOOD Negative; URINE COLOR Yellow; URINE GLUCOSE Negative (NEGATIVE); URINE KETONE Negative (NEGATIVE); URINE LEUKOCYTE Negative; URINE NITRATE Negative; URINE PROTEIN Trace (NEGATIVE); URINE UROBILINOGEN 0.2 E.U./dl
[2024-11-10 12:19] LABS: URINE BACTERIA 603.1 uL (0.0-1933); URINE EPITHELIAL CELLS 11.8 uL (0.0-38.8)
[2024-11-10 12:21] LABS: URINE CAST 1.32 uL (0.0-1.40); URINE RBC 0.2 uL (0.0-20.8)
[2024-11-10 12:32] LABS: ALBUMIN 3.6 gm/dL (3.4-5.0); BILIRUBIN TOTAL 0.51 mg/dL (0.3-1.2); CALCIUM 9.4 mg/dL (8.5-10.1); CHOL HDL RATIO 3.3 (0-5.0); CREATININE SERUM 2.34 mg/dL (0.55-1.02); GFR 20.8; GLOBULINA 3.6 G/DL (2.4-3.5); POTASSIUM 3.29 mEq/L (3.5-5.1); TOTAL PROTEIN 7.2 gm/dL (6.4-8.2); TSH 1.76 uIU/mL (0.358-3.74)
== END 2024-11-10 10:55 | disposition home or self-care (01) ==
LOC: LAB 10:48
PROVIDERS: ATTEND Internal Medicine Geriatric Medicine
DX: D50.9 Iron deficiency anemia, unspecified (principal); E03.9 Hypothyroidism, unspecified; E78.2 Mixed hyperlipidemia; I11.9 Hypertensive heart disease without heart failure; E56.8 Deficiency of other vitamins; N39.0 Urinary tract infection, site not specified; Z12.11 Encounter for screening for malignant neoplasm of colon; E55.9 Vitamin D deficiency, unspecified; N19 Unspecified kidney failure; E11.9 Type 2 diabetes mellitus without complications; R80.9 Proteinuria, unspecified; C18.0 Malignant neoplasm of cecum; K92.1 Melena

== ENCOUNTER → 2025-02-15 10:15 | Outpatient (CLI) | payer OTHER ==
[2025-02-15 11:02] LABS: BASO % 0.4 % (0.1-1.2); EOS # 0.39 (0.04-0.54); EOS % 2.8 % (0.7-7.0); LYMPH # 1.91 (1.18-3.74); LYMPH % 13.9 % (19.3-53.1); MEAN PLATELET VOLUME 9.40 fl (9.4-12.4); MONO # 0.40 (0.24-0.82); MONO % 2.9 % (4.7-12.5); NEUT # 10.92 (1.56-6.13); NEUT % 79.6 % (34.0-71.1); RED CELL DISTRIBUTION WIDTH 13.7 % (11.6-14.4)
[2025-02-15 11:16] LABS: URINE APPEARANCE Clear; URINE BILIRRUBIN Negative (NEGATIVE); URINE BLOOD Negative; URINE COLOR Yellow; URINE GLUCOSE Negative (NEGATIVE); URINE KETONE Negative (NEGATIVE); URINE LEUKOCYTE Small; URINE NITRATE Positive; URINE PROTEIN Trace (NEGATIVE); URINE UROBILINOGEN 0.2 E.U./dl
[2025-02-15 11:23] LABS: URINE EPITHELIAL CELLS 8.7 uL (0.0-38.8); URINE RBC 3.0 uL (0.0-20.8); URINE WBC 193.6 uL (0.0-23.2)
[2025-02-15 11:27] LABS: URINE BACTERIA > 9821.5 uL (0.0-1933); URINE CAST 0.29 uL (0.0-1.40)
[2025-02-15 12:01] LABS: ALT/SGPT 14.0 U/L (12-78); AST/SGOT 13.0 U/L (15-37); BILIRUBIN TOTAL 0.43 mg/dL (0.3-1.2); BUN CREA RATIO 12.0 (7.0-25.0); CHOL HDL RATIO 2.7 (0-5.0); CREATININE SERUM 2.17 mg/dL (0.55-1.02); GFR 22.69; GLOBULINA 3.7 G/DL (2.4-3.5); GLUCOSE FASTING 89.0 mg/dL (65-100); HDL 63.0 mg/dl (40-60); LDL 84.0 mg/dl (0-130); OSMOLALITY SERUM 293.0 MOSM/KG (275-295); TSH 1.64 uIU/mL (0.358-3.74); VLDL 21.0 (0-39)
== END | disposition home or self-care (01) ==
LOC: LAB 10:15
PROVIDERS: ATTEND Internal Medicine Geriatric Medicine
DX: D50.9 Iron deficiency anemia, unspecified (principal); E03.9 Hypothyroidism, unspecified; E78.2 Mixed hyperlipidemia; I11.9 Hypertensive heart disease without heart failure; E56.8 Deficiency of other vitamins; N39.0 Urinary tract infection, site not specified; Z12.11 Encounter for screening for malignant neoplasm of colon; R19.5 Other fecal abnormalities; E55.9 Vitamin D deficiency, unspecified; N19 Unspecified kidney failure; E11.9 Type 2 diabetes mellitus without complications; R80.9 Proteinuria, unspecified; C18.9 Malignant neoplasm of colon, unspecified

== ENCOUNTER 2025-05-19 09:44 | Outpatient (CLI) | payer OTHER | END 2025-05-19 09:45 | disposition home or self-care (01) | LOC: MRI 09:44 | PROVIDERS: ATTEND Orthopaedic Surgery | DX: S46.012A Strain of muscle(s) and tendon(s) of the rotator cuff of left shoulder, initial encounter (principal); X58.XXXA Exposure to other specified factors, initial encounter; Y93.9 Activity, unspecified; Y92.9 Unspecified place or not applicable; Y99.9 Unspecified external cause status | CPT/HCPCS: 73218 ==

== ENCOUNTER 2025-05-23 10:52 | Outpatient (CLI) | payer OTHER ==
[2025-05-23 11:41] LABS: BASO % 0.3 % (0.1-1.2); EOS # 0.47 (0.04-0.54); EOS % 3.2 % (0.7-7.0); LYMPH # 1.65 (1.18-3.74); LYMPH % 11.3 % (19.3-53.1); MEAN PLATELET VOLUME 9.70 fl (9.4-12.4); MONO # 0.38 (0.24-0.82); MONO % 2.6 % (4.7-12.5); NEUT # 11.95 (1.56-6.13); NEUT % 81.9 % (34.0-71.1); RED CELL DISTRIBUTION WIDTH 13.9 % (11.6-14.4)
[2025-05-23 12:41] LABS: % SATURACION 19.1 % (15-50); ALT/SGPT 16.0 U/L (12-78); AST/SGOT 12.0 U/L (15-37); BILIRUBIN TOTAL 0.23 mg/dL (0.3-1.2); BUN CREA RATIO 14.0 (7.0-25.0); CREATININE SERUM 2.47 mg/dL (0.55-1.02); FE 51.0 ug/dl (50-170); GFR 19.54; GLOBULINA 3.6 G/DL (2.4-3.5); GLUCOSE FASTING 97.0 mg/dL (65-100); LDH 130.0 U/L (84-246); OSMOLALITY SERUM 293.0 MOSM/KG (275-295)
[2025-05-23 13:23] LABS: FOLIC ACID 17.51 ng/ml (4.78-20)
== END 2025-05-23 10:57 | disposition home or self-care (01) ==
LOC: LAB 10:52
PROVIDERS: ATTEND Internal Medicine Hematology & Oncology
DX: D50.8 Other iron deficiency anemias (principal); I10 Essential (primary) hypertension; R74.02 Elevation of levels of lactic acid dehydrogenase [LDH]; K76.89 Other specified diseases of liver; D51.3 Other dietary vitamin B12 deficiency anemia; D52.9 Folate deficiency anemia, unspecified; D63.1 Anemia in chronic kidney disease; D72.828 Other elevated white blood cell count; F33.9 Major depressive disorder, recurrent, unspecified; G47.33 Obstructive sleep apnea (adult) (pediatric); N20.0 Calculus of kidney; D52.8 Other folate deficiency anemias; E04.2 Nontoxic multinodular goiter; E21.0 Primary hyperparathyroidism